=== PATIENT | female | born 1950 | race American Indian/Alaskan Native ===

== ENCOUNTER 2022-02-01 15:47 | Outpatient (CLI) | payer MEDICARE ==
[2022-02-01 17:01] LABS: Calcium 8.8 mg/dL (8.4-10.2)
[2022-02-01 17:18] LABS: Hyaline Casts,Urine 1 /LPF; Mucus,Urine FEW /HPF
[2022-02-01 17:19] LABS: Creatinine,Urine 219.3 mg/dL (0.1-20.0)
[2022-02-01 17:26] LABS: Color,Urine Yellow (Yellow)
[2022-02-01 17:46] LABS: Protein/Creatinine Ratio,Urine 2.04
== END 2022-02-01 15:48 | disposition home or self-care (01) ==
LOC: LAB 15:47
PROVIDERS: ATTEND Internal Medicine Nephrology
DX: N18.30 Chronic kidney disease, stage 3 unspecified (principal)
CPT/HCPCS: 36415; 80048; 81001; 82570; 84156; 85014; 85018; 86334